=== PATIENT | female | born 1985 | race Two or more races ===

== ENCOUNTER 2024-08-19 06:39 | Inpatient (IN) | payer OTHER ==
[~2024-08-19] VITALS: Ht 167.6 cm; Wt 79.8 kg
[2024-08-19] VITALS (7 sets, daily range): BP systolic 102–138; BP diastolic 60–91
[2024-08-19] MEDS ORDERED: OXYTOCIN 500 ML IV SCH (08:00)
[2024-08-19 08:26] LABS: PH,URINE 5.5 (5.0-8.0); URINE APPEARANCE Clear; URINE BILIRRUBIN Small (NEGATIVE); URINE BLOOD Negative; URINE COLOR Dark Yellow; URINE GLUCOSE Negative (NEGATIVE); URINE KETONE Negative (NEGATIVE); URINE LEUKOCYTE Small; URINE NITRATE Negative; URINE PROTEIN 30 (NEGATIVE)
[2024-08-19 08:29] LABS: HEMATOCRIT 39.8 % (36.0-45.00); HEMOGLOBIN 13.7 g/dL (12.0-15.00); MEAN CELL VOLUME 84.1 fL (80.00-100.00); MEAN CORPUSCULAR HGB CONC 34.4 g/dl (32.0-36.0); PLATELET COUNT 169 K/uL (150-450); RED BLOOD COUNT 4.73 M/uL (4.00-6.00); RED CELL DISTRIBUTION WIDTH 14.1 % (11.5-14.5)
[2024-08-19 08:30] LABS: URINE BACTERIA 2386.3 uL (0.0-1933); URINE CAST 1.52 uL (0.0-1.40); URINE EPITHELIAL CELLS 62.5 uL (0.0-38.8); URINE RBC 4.5 uL (0.0-20.8); URINE WBC 70.7 uL (0.0-23.2)
[2024-08-19 08:46] LABS: INR < 0.93; PARTIAL THROMBOPLASTIN TIME 26.8 SECONDS (22.0-34.0)
[2024-08-19] MEDS ORDERED: ASA81 MG PO (08:54)
[2024-08-19] MEDS ORDERED: PRENATABS RX T1 EACH PO (08:54)
[2024-08-19 09:21] LABS: ALBUMIN 3.3 gm/dL (3.4-5.0); BILIRUBIN TOTAL 1.25 mg/dL (0.3-1.2); CALCIUM 9.3 mg/dL (8.5-10.1); CREATININE SERUM 0.63 mg/dL (0.55-1.02); GFR 105.76; GLOBULINA 3.8 G/DL (2.4-3.5); POTASSIUM 3.71 mEq/L (3.5-5.1); TOTAL PROTEIN 7.1 gm/dL (6.4-8.2)
[2024-08-19] MEDS ORDERED: PROMETHAZINE HCL 50 MG/ML AMPUL IM ONE (12:00)
[2024-08-19] MEDS ORDERED: MEPERIDINE HCL/PF 50 MG/ML VIAL IV ONE (12:00)
[2024-08-19] MEDS ORDERED: CHLORHEXIDINE GLUCONATE 120 ML BOTTLE TOP SCH (14:30)
[2024-08-19] MEDS ORDERED: IBUprofen 400 MG TABLET PO PRN (14:30)
[2024-08-19] MEDS ORDERED: ACETAMINOPHEN 500 MG GEL..CAP PO PRN (14:30)
[2024-08-19] MEDS ORDERED: OXYTOCIN 1,000 ML IV SCH (14:30)
[2024-08-19] MEDS ORDERED: NALOXONE HCL 0.4 MG/ML AMPUL SUBCUTANEO ONE (15:00)
[2024-08-19] MEDS ORDERED: METHYLERGONOVINE MALEATE 0.2 MG/ML AMPUL IM ONE (15:00)
[2024-08-19] MEDS ORDERED: LIDOCAINE HCL 1% 10ML VIAL IJ ONE (15:15)
[2024-08-19] MEDS ORDERED: ERYTHROMYCIN BASE OPHT 1GM EACH TUBE OP ONE (15:15)
[2024-08-20 01:25] VITALS: BP 113/64
[2024-08-20 08:54] VITALS: BP 124/71
[2024-08-20 16:00] VITALS: BP 134/66
[2024-08-21 00:41] VITALS: BP 102/63
[2024-08-21 08:00] VITALS: BP 124/71
[2024-08-21] MEDS ORDERED: NAPR500T14 PO (12:08)
== END 2024-08-21 15:40 | disposition home or self-care (01) | DRG 807 ==
LOC: OB/GYN 06:39 → LDR 06:39 → O/R 08:45 → LDR 08:46 → OB/GYN 14:19
PROVIDERS: ADMIT Obstetrics & Gynecology; ATTEND Obstetrics & Gynecology
PROC: 10E0XZZ Delivery of Products of Conception, External Approach (ICD-10-PCS; principal; 2024-08-19)
PROC: 0KQM0ZZ Repair Perineum Muscle, Open Approach (ICD-10-PCS; 2024-08-19)
PROC: 4A1HXCZ Monitoring of Products of Conception, Cardiac Rate, External Approach (ICD-10-PCS; 2024-08-19)
DX: O70.1 Second degree perineal laceration during delivery (principal); Z37.0 Single live birth; Z3A.38 38 weeks gestation of pregnancy; Z20.822 Contact with and (suspected) exposure to COVID-19